=== PATIENT | male | born 1945 | race Caucasian/White ===

== ENCOUNTER 2016-06-23 08:20 | Outpatient (CLI) | payer MEDICARE, OTHER | END 2016-06-23 08:21 | disposition home or self-care (01) | DX: I48.91 Unspecified atrial fibrillation (principal) ==

== ENCOUNTER 2018-03-20 09:55 | Emergency (ER) | payer MEDICARE, OTHER ==
[2018-03-20] MEDS ORDERED: SODIUM CHLORIDE 0.9% 1,000 ML IV ONE (10:20)
--- NOTE | 2018-03-20 10:22 | ED Physician Documentation ---
PD HPI CHEST PAIN - Stated complaint Stated Complaint: IRREGULAR HEARTBEAT - Chief complaint Chief Complaint: Cardiac - History obtained from History obtained from: Patient - History of Present Illness Timing - onset: Last night (about 2 am (8) Timing - onset during: Sleep, Rest Timing - duration: Hours (about 9-10 hours now.) Timing - details: Gradual onset, Still present, Waxing and waning Quality: Pressure (mainly feeling heart going faster than usually. has had atrial fib in the past and it feels like that now.). No: Pain Location: Substernal. No: Left neck, Epigastric Radiation: No: Jaw, Neck, Abdominal Review of Systems Constitutional: denies: Fever, Chills, Myalgias Nose: denies: Rhinorrhea / runny nose, Congestion Throat: denies: Sore throat Respiratory: denies: Cough GI: denies: Abdominal Pain, Nausea, Vomiting, Diarrhea PD PAST MEDICAL HISTORY - Past Medical History Cardiovascular: Hypertension, High cholesterol Respiratory: None Endocrine/Autoimmune: None GI: GERD : None HEENT: None Psych: None Musculoskeletal: None Derm: None - Past Surgical History Past Surgical History: Yes Cardiovascular: Other - Present Medications Home Medications: Ambulatory Orders Medication Instructions Recorded Confirmed Losartan [Cozaar] 25 mg PO DAILY 01/20/14 08/04/15 Omeprazole 20 mg PO DAILY 01/20/14 08/04/15 Aspirin/Calcium Carbonate/Mag 1 mg PO DAILY 09/28/14 08/04/15 [Aspirin Buffered 325 mg Tab] Hydrochlorothiazide 12.5 mg PO DAILY 05/06/15 08/04/15 Warfarin [Coumadin] 5 mg PO DAILY 05/06/15 08/04/15 - Allergies Allergies/Adverse Reactions: Allergies Allergy/AdvReac Type Severity Reaction Status Date / Time Sulfa (Sulfonamide Allergy Unknown Verified 08/04/15 10:45 Antibiotics) - Social History Does the pt smoke?: No Smoking Status: Never smoker Does the pt drink ETOH?: No Does the pt have substance abuse?: No - Immunizations Immunizations are current?: Yes Immunizations: TDAP >10years/unknown, No immun - POLST Patient has POLST: No PD ED PE NORMAL - Vitals Vital signs reviewed: Yes - General General: Alert and oriented X 3, No acute distress, Well developed/nourished - HEENT HEENT: Moist mucous membranes, Pharynx benign - Neck Neck: No bony TTP - Cardiac Cardiac: RRR, No murmur - Respiratory Respiratory: Clear bilaterally - Abdomen Abdomen: Soft, Non tender - Male Male : Deferred, Pt declined - Rectal Rectal: Deferred - Back Back: No CVA TTP - Derm Derm: Normal color, Warm and dry, No rash - Extremities Extremities: No tenderness to palpate, Normal ROM s pain, No calf tenderness / cord - Neuro Neuro: Alert and oriented X 3 Eye Opening: Spontaneous Motor: Obeys Commands Verbal: Oriented GCS Score: 15 - Psych Psych: Normal mood Results - Vitals Vitals: Oxygen O2 Source Room air - Labs Labs: Laboratory Tests 03/20/18 03/20/18 03/20/18 10:25 10:25 10:25 WBC 5.2 RBC 5.22 Hgb 16.5 Hct 46.8 MCV 89.7 MCH 31.7 H MCHC 35.3 RDW 13.3 Plt Count 135 MPV 8.9 Neut # (Auto) 3.5 Lymph # (Auto) 0.9 L [place] # (Auto) 0.5 Eos # (Auto) 0.2 Baso # (Auto) 0.1 Absolute Nucleated RBC 0.01 Nucleated RBC % 0.2 PT INR Sodium 137 Potassium 4.1 Chloride 101 Carbon Dioxide 27 Anion Gap 9.0 BUN 12 Creatinine 0.7 Estimated GFR (MDRD) 111 Glucose 106 H Calcium 8.8 Magnesium 2.1 Total Bilirubin 1.3 H AST 32 ALT 30 Alkaline Phosphatase 109 B-Natriuretic Peptide 42 Total Protein 7.3 Albumin 4.4 Globulin 2.9 Albumin/Globulin Ratio 1.5 Lipase 24 03/20/18 10:25 WBC RBC Hgb Hct MCV MCH MCHC RDW Plt Count MPV Neut # (Auto) Lymph # (Auto) [place] # (Auto) Eos # (Auto) Baso # (Auto) Absolute Nucleated RBC Nucleated RBC % PT 12.7 H INR 1.1 Sodium Potassium Chloride Carbon Dioxide Anion Gap BUN Creatinine Estimated GFR (MDRD) Glucose Calcium Magnesium Total Bilirubin AST ALT Alkaline Phosphatase B-Natriuretic Peptide Total Protein Albumin Globulin Albumin/Globulin Ratio Lipase PD MEDICAL DECISION MAKING - ED course Complexity details: considered differential (his rhythm was atrial fib on arrival, and then converted without specific treatment. ), d/w patient Departure - Departure Disposition: 01 Home, Self Care Clinical Impression: Atrial fibrillation with rapid ventricular response Condition: Stable Record reviewed to determine appropriate education?: Yes Instructions: ED Afib Follow-Up: Derik Jay MD [Primary Care Provider] - Comments: Your electrolytes appear good. Maintain good hydration. Continue your current medications. Contact your cardiology office today and let them know you had an episode of the A. fib but it stopped on its own. See when they want to do a follow-up. Return if recurrent episodes of the fibrillation. Discharge Date/Time: 03/20/18 11:33
[2018-03-20 10:54] LABS: BASOPHILS # (AUTO) 0.1 10^3/uL (0.0-0.1); BASOPHILS % (AUTO) 2.4 %; EOSINOPHILS # (AUTO) 0.2 10^3/uL (0.0-0.7); EOSINOPHILS % (AUTO) 3.8 %; HGB - HEMOGLOBIN 16.5 g/dL (14.0-18.0); LYMPHOCYTES # (AUTO) 0.9 10^3/uL (1.5-3.5); LYMPHOCYTES % (AUTO) 17.1 %; MEAN CORPUSCULAR HEMOGLOBIN 31.7 pg (27.0-31.0); MEAN CORPUSCULAR HGB CONC 35.3 g/dL (32.0-36.0); MEAN CORPUSCULAR VOLUME 89.7 fL (80.0-94.0); MEAN PLATELET VOLUME 8.9 fL (7.4-11.4); MONOCYTES # (AUTO) 0.5 10^3/uL (0.0-1.0); MONOCYTES % (AUTO) 10.3 %; NEUTROPHILS # (AUTO) 3.5 10^3/uL (1.5-6.6); NEUTROPHILS % (AUTO) 66.4 %; PLT - PLATELET COUNT 135 10^3/uL (130-450); RED BLOOD COUNT 5.22 10^6/uL (4.70-6.10); RED CELL DISTRIBUTION WIDTH 13.3 % (12.0-15.0); WHITE BLOOD COUNT 5.2 x10^3/uL (4.8-10.8)
[2018-03-20 11:03] LABS: ALBUMIN 4.4 g/dL (3.2-5.5); ALBUMIN/GLOBULIN RATIO 1.5 (1.0-2.2); BILIRUBIN,TOTAL 1.3 mg/dL (0.2-1.0); CALCIUM 8.8 mg/dL (8.5-10.3); CREATININE 0.7 mg/dL (0.6-1.2); MAGNESIUM 2.1 mg/dL (1.7-2.8); TOTAL PROTEIN 7.3 g/dL (6.7-8.2)
[2018-03-20 11:07] LABS: INR 1.1 (0.8-1.2); PT - PROTHROMBIN TIME 12.7 secs (9.9-12.6)
[2018-03-20 11:33] VITALS: BP 112/70
== END 2018-03-20 11:33 | disposition home or self-care (01) ==
LOC: ED 09:55
DX: I48.91 Unspecified atrial fibrillation (principal); I10 Essential (primary) hypertension; E78.00 Pure hypercholesterolemia, unspecified; Z79.82 Long term (current) use of aspirin; Z79.01 Long term (current) use of anticoagulants
CPT/HCPCS: 36415; 80053; 83690; 83735; 83880; 85025; 85610; 93005; 96360; 99283

== ENCOUNTER 2018-04-05 01:18 | Emergency (ER) | payer MEDICARE, OTHER ==
--- NOTE | 2018-04-05 01:40 | ED Physician Documentation ---
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" since 10 PM he had an epsiode of afib Mar 20, spont converted, dc home, fup cardio and cardio did a stress which was abn then cath which got pt a stent he is now on plavix he only spent one night in the hospital and has been up and about and had no leg swelling Review of Systems Constitutional: denies: Fever, Chills Cardiac: reports: Chest pain / pressure (indigestion), Palpitations Respiratory: denies: Dyspnea GI: denies: Abdominal Pain, Nausea, Vomiting Musculoskeletal: denies: Extremity pain, Extremity swelling Endocrine: reports: Easy bruising / bleeding (plavix) Immunocompromised: denies: Immunocompromised PD PAST MEDICAL HISTORY - Past Medical History Past Medical History: Yes Cardiovascular: Hypertension, High cholesterol, Atrial fibrillation Respiratory: None Endocrine/Autoimmune: None GI: GERD : None HEENT: None Psych: None Musculoskeletal: None Derm: None - Past Surgical History Past Surgical History: Yes Cardiovascular: Other - Present Medications Home Medications: Ambulatory Orders Medication Instructions Recorded Confirmed Losartan [Cozaar] 25 mg PO DAILY 01/20/14 08/04/15 Omeprazole 20 mg PO DAILY 01/20/14 08/04/15 Aspirin/Calcium Carbonate/Mag 1 mg PO DAILY 09/28/14 08/04/15 [Aspirin Buffered 325 mg Tab] Hydrochlorothiazide 12.5 mg PO DAILY 05/06/15 08/04/15 Warfarin [Coumadin] 5 mg PO DAILY 05/06/15 08/04/15 - Allergies Allergies/Adverse Reactions: Allergies Allergy/AdvReac Type Severity Reaction Status Date / Time Sulfa (Sulfonamide Allergy Unknown Verified 04/05/18 01:28 Antibiotics) - Social History Does the pt smoke?: No Smoking Status: Never smoker Does the pt drink ETOH?: No Does the pt have substance abuse?: No - Immunizations Immunizations are current?: Yes Immunizations: TDAP >10years/unknown, No immun - POLST Patient has POLST: No PD ED PE NORMAL - Vitals Vital signs reviewed: Yes - General General: Alert and oriented X 3 - Neck Neck: Supple, no meningeal sign - Cardiac Cardiac: RRR - Respiratory Respiratory: No respiratory distress, Clear bilaterally - Abdomen Abdomen: Soft, Non tender - Derm Derm: Normal color - Extremities Extremities: No deformity, Normal ROM s pain, No edema, No calf tenderness / cord - Neuro Neuro: Alert and oriented X 3 Results - Vitals Vitals: Vital Signs - 24 hr 04/05/18 04/05/18 04/05/18 01:23 01:53 01:59 Temperature 35.6 C L Heart Rate 124 H 120 H 90 Respiratory 17 16 15 Rate Blood Pressure 175/95 H 159/108 H 128/74 O2 Saturation 94 96 96 04/05/18 04/05/18 04/05/18 02:05 02:10 02:27 Temperature Heart Rate 81 88 90 Respiratory 16 17 17 Rate Blood Pressure 134/85 H 142/85 H 132/81 H O2 Saturation 97 98 96 04/05/18 04/05/18 04/05/18 02:35 02:59 03:13 Temperature Heart Rate 76 91 85 Respiratory 16 17 16 Rate Blood Pressure 141/81 H 146/85 H 130/87 H O2 Saturation 97 97 97 04/05/18 04/05/18 04/05/18 03:24 03:36 03:50 Temperature Heart Rate 99 96 98 Respiratory 15 19 15 Rate Blood Pressure 130/88 H 132/97 H 116/79 O2 Saturation 99 96 96 04/05/18 04/05/18 04/05/18 04:04 04:27 04:33 Temperature Heart Rate 105 H 127 H 55 L Respiratory 17 17 16 Rate Blood Pressure 121/90 H 116/104 H 92/56 L O2 Saturation 97 99 97 04/05/18 04/05/18 04:37 04:58 Temperature Heart Rate 50 L 46 L Respiratory 15 17 Rate Blood Pressure 115/67 108/62 O2 Saturation 99 98 Oxygen O2 Source Room air - EKG (time done) 107 Rate: Rate (enter#) (124) Rhythm: Atrial fibrillation Ischemia: Non specific changes (flat ts inferior) 0437 Rate: Rate (enter#) (50) Rhythm: Sinus bradycardia Intervals: Normal [place] QRS: Normal Ischemia: T wave inversion (III only) Compare to prior EKG: Unchanged from prior EKG (lead III is similar to last NSR EKG dates 2014) 0455 Rate: Rate (enter#) (49) Rhythm: Sinus bradycardia [place]: Normal Intervals: Normal [place]. No: Prolonged QT Ischemia: T wave inversion (III only not new) Compare to prior EKG: Unchanged from prior EKG - Labs Labs: Laboratory Tests 04/05/18 04/05/18 04/05/18 01:35 01:35 01:35 WBC 6.2 RBC 4.75 Hgb 15.1 Hct 43.5 MCV 91.6 MCH 31.8 H MCHC 34.7 RDW 13.3 Plt Count 133 MPV 9.2 Neut # (Auto) 4.5 Lymph # (Auto) 1.1 L [place] # (Auto) 0.3 Eos # (Auto) 0.3 Baso # (Auto) 0.1 Absolute Nucleated RBC 0.00 Nucleated RBC % 0.0 Sodium 136 Potassium 3.2 L Chloride 99 L Carbon Dioxide 27 Anion Gap 10.0 BUN 22 H Creatinine 0.7 Estimated GFR (MDRD) 111 Glucose 133 H Calcium 8.8 Troponin I < 0.04 04/05/18 03:45 WBC RBC Hgb Hct MCV MCH MCHC RDW Plt Count MPV Neut # (Auto) Lymph # (Auto) [place] # (Auto) Eos # (Auto) Baso # (Auto) Absolute Nucleated RBC Nucleated RBC % Sodium Potassium Chloride Carbon Dioxide Anion Gap BUN Creatinine Estimated GFR (MDRD) Glucose Calcium Troponin I < 0.04 Procedures - Procedural sedation Sedation prep: Informed consent, Time out completed, Last meal (gatoriad 4 hr prior), PE performed, AHA 2 - mild disease, IV O2 monitor, ET CO2 monitor, RT present Sedation medications: morphine, propofol Patient status during sedation: Responds to verbal, Vitals remained stable, Maintained airway, Recovered uneventfully. No: Respiratory depression, Hypoxia, Needed resp assistance, Complications Sedation recovery: Recovered uneventfully, Back to baseline - Cardioversion 0430 Time of attempt: 04:30 Indication: Chest pain Risks, benefits, alternatives explained to: Pt Prep: IV, O2, amortization schedule clerk, Pulse ox, Airway equip Meds: Morphine, Propofol CS via: Pads Sync: Biphasic, 100j Post cardioversion rhythm: NSR Complications: No: Contact burn, Apnea, Hypotension Performed by: ED MD PD MEDICAL DECISION MAKING - ED course ED course: dilt 10 mg slowed rate but pt did not concernt procainamide 1 gram at 25mg/min also did not concert pt (he was not a candidate for flecainide given recent ACS) he was continuing to have "indigestion" pressure to epigastric region so did not feel safe too dc to fup cardio for discussion and cadriovert within 48 hr so after discussing risks and benefits proceeded with cardiovert under propofol sedation with conversion to NSR with one shock at 100 J Departure - Departure Disposition: Home, Self Care Clinical Impression: Atrial fibrillation Qualifiers: Atrial fibrillation type: paroxysmal Qualified Code(s): I48.0 - Paroxysmal atrial fibrillation Condition: Good Instructions: ED Afib, ED Cardioversion Comments: 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 Today you arrived in atrial fibrillation with a slighty fast heart rate We were not able to concert you back to a regular rhythm with medications so had to use elctricity. Because your wharf laborer found that you needed a stent after your last bout of atrial fibrillation, we checked two rounds of cardiac enzymes in the ER and they were fine You should not drive for the next 24 hr after your sedation.
[2018-04-05 01:49] LABS: BASOPHILS # (AUTO) 0.1 10^3/uL (0.0-0.1); BASOPHILS % (AUTO) 1.1 %; CALCIUM 8.8 mg/dL (8.5-10.3); CREATININE 0.7 mg/dL (0.6-1.2); EOSINOPHILS # (AUTO) 0.3 10^3/uL (0.0-0.7); EOSINOPHILS % (AUTO) 4.3 %; HGB - HEMOGLOBIN 15.1 g/dL (14.0-18.0); LYMPHOCYTES # (AUTO) 1.1 10^3/uL (1.5-3.5); LYMPHOCYTES % (AUTO) 17.5 %; MEAN CORPUSCULAR HEMOGLOBIN 31.8 pg (27.0-31.0); MEAN CORPUSCULAR HGB CONC 34.7 g/dL (32.0-36.0); MEAN CORPUSCULAR VOLUME 91.6 fL (80.0-94.0); MEAN PLATELET VOLUME 9.2 fL (7.4-11.4); MONOCYTES # (AUTO) 0.3 10^3/uL (0.0-1.0); MONOCYTES % (AUTO) 5.1 %; NEUTROPHILS # (AUTO) 4.5 10^3/uL (1.5-6.6); PLT - PLATELET COUNT 133 10^3/uL (130-450); RED BLOOD COUNT 4.75 10^6/uL (4.70-6.10); RED CELL DISTRIBUTION WIDTH 13.3 % (12.0-15.0); WHITE BLOOD COUNT 6.2 x10^3/uL (4.8-10.8)
[2018-04-05] MEDS: SODIUM CHLORIDE 0.9% 1,000 ML IV ONE (01:55)
[2018-04-05] MEDS: diltiaZEM INJ 5 MG/ML VIAL IVP STA (01:55)
[2018-04-05] MEDS: PROCAINAMIDE 1,000 MG in SODIUM CHLORIDE 0.9% 240 ML IV STA (03:17)
[2018-04-05] MEDS: PROMETHAZINE INJ 25 MG in SODIUM CHLORIDE 0.9% 50 ML IV STA (04:24)
[2018-04-05] MEDS: MORPHINE 2 MG/ML CARPUJECT IVP STA (04:24)
[2018-04-05] MEDS: ONDANSETRON 4 MG/2 ML VIAL IVP STA (04:34)
[2018-04-05] MEDS: PROPOFOL 200 MG/20 ML VIAL IVP STA (04:34)
[2018-04-05] MEDS: POTASSIUM CHLORIDE 20 MEQ TABLET PO STA (05:19)
[2018-04-05 05:22] VITALS: BP 122/81
== END 2018-04-05 05:42 | disposition home or self-care (01) ==
LOC: ED 01:18
DX: I48.0 Paroxysmal atrial fibrillation (principal); R00.1 Bradycardia, unspecified; I10 Essential (primary) hypertension; E78.00 Pure hypercholesterolemia, unspecified; Z79.01 Long term (current) use of anticoagulants; Z95.5 Presence of coronary angioplasty implant and graft
CPT/HCPCS: 36415; 80048; 84484; 85025; 92960; 93005; 96365; 96375; 99284; 99285

== ENCOUNTER 2018-04-17 08:22 | Outpatient (CLI) | payer MEDICARE, OTHER | END 2018-04-17 08:23 | disposition home or self-care (01) | LOC: LAB.F 08:22 | PROVIDERS: ATTEND Family Medicine | DX: Z79.01 Long term (current) use of anticoagulants (principal); I48.91 Unspecified atrial fibrillation | CPT/HCPCS: 85610 ==

== ENCOUNTER 2018-04-24 07:22 | Outpatient (CLI) | payer MEDICARE, OTHER | END 2018-04-24 07:23 | disposition home or self-care (01) | LOC: LAB.F 07:22 | PROVIDERS: ATTEND Family Medicine | DX: Z79.01 Long term (current) use of anticoagulants (principal); I48.91 Unspecified atrial fibrillation | CPT/HCPCS: 85610 ==

== ENCOUNTER 2018-05-03 07:32 | Outpatient (CLI) | payer MEDICARE, OTHER | END 2018-05-03 07:33 | disposition home or self-care (01) | LOC: LAB.F 07:32 | PROVIDERS: ATTEND Family Medicine | DX: Z79.01 Long term (current) use of anticoagulants (principal); I48.91 Unspecified atrial fibrillation | CPT/HCPCS: 85610 ==

== ENCOUNTER 2018-05-16 14:22 | Outpatient (CLI) | payer MEDICARE, OTHER | END 2018-05-16 14:23 | disposition home or self-care (01) | LOC: LAB.F 14:22 | PROVIDERS: ATTEND Family Medicine | DX: Z79.01 Long term (current) use of anticoagulants (principal); I48.91 Unspecified atrial fibrillation | CPT/HCPCS: 85610 ==

== ENCOUNTER 2018-07-01 03:07 | Outpatient (CLI) | payer MEDICARE, OTHER | END 2018-07-01 03:08 | disposition critical access hospital (66) | LOC: EMS 03:07 | PROVIDERS: ATTEND Surgery | DX: R00.0 Tachycardia, unspecified (principal) | CPT/HCPCS: A0425; A0427 ==

== ENCOUNTER 2018-07-01 03:39 | Emergency (ER) | payer MEDICARE, OTHER ==
[2018-07-01] MEDS ORDERED: SODIUM CHLORIDE 0.9% 1,000 ML IV ONE (04:00)
[2018-07-01] MEDS ORDERED: diltiaZEM INJ 5 MG/ML VIAL IVP STA (04:00)
--- NOTE | 2018-07-01 04:03 | ED Physician Documentation ---
History of Present Illness - Stated complaint Stated Complaint: RACING HEART, A-FIB - Chief complaint Chief Complaint: Cardiac - History obtained from History obtained from: Patient, EMS - History of Present Illness Timing: Today - Additonal information Additional information: 73 y/o male with a history of afib S/P ablation has developed rapid heart rate this morning after getting up to go to the bathroom. Review of Systems Constitutional: denies: Fever, Chills, Myalgias, Fatigue, Sweats Eyes: reports: Other (developed a "spot" in the vision 10 days ago evaluated by opthamology) Ears: denies: Ear pain Nose: denies: Rhinorrhea / runny nose, Congestion Throat: denies: Sore throat Cardiac: reports: Chest pain / pressure (had evaluation done at [place]) Respiratory: denies: Dyspnea, Cough GI: denies: Abdominal Pain, Nausea, Vomiting, Constipation, Diarrhea : denies: Dysuria, Frequency Skin: denies: Rash Musculoskeletal: denies: Neck pain, Back pain, Extremity pain Neurologic: denies: Generalized weakness, Focal weakness, Numbness PD PAST MEDICAL HISTORY - Past Medical History Past Medical History: Yes Cardiovascular: Hypertension, High cholesterol, Atrial fibrillation Respiratory: None Endocrine/Autoimmune: None GI: GERD : None HEENT: None Psych: None Musculoskeletal: None Derm: None - Past Surgical History Past Surgical History: Yes Cardiovascular: Other - Present Medications Home Medications: Ambulatory Orders Medication Instructions Recorded Confirmed Losartan [Cozaar] 50 mg PO DAILY 01/20/14 07/01/18 Omeprazole 20 mg PO DAILY 01/20/14 07/01/18 Hydrochlorothiazide 12.5 mg PO DAILY 05/06/15 07/01/18 Warfarin [Coumadin] 5 mg PO DAILY 05/06/15 07/01/18 Aspirin 1 tab PO DAILY 07/01/18 07/01/18 Atorvastatin Calcium 1 tab PO DAILY 07/01/18 07/01/18 Clopidogrel [Plavix] 1 tab PO DAILY 07/01/18 07/01/18 Diltiazem HCl [Diltiazem ER] 120 mg PO DAILY 07/01/18 07/01/18 Warfarin Sodium 1 tab PO DAILY 07/01/18 07/01/18 raNITIdine [Zantac] 1 tab PO BID 07/01/18 07/01/18 - Allergies Allergies/Adverse Reactions: Allergies Allergy/AdvReac Type Severity Reaction Status Date / Time Sulfa (Sulfonamide Allergy Unknown Verified 07/01/18 03:55 Antibiotics) - Social History Does the pt smoke?: No Smoking Status: Never smoker Does the pt drink ETOH?: No Does the pt have substance abuse?: No - Immunizations Immunizations are current?: Yes Immunizations: TDAP >10years/unknown, No immun - POLST Patient has POLST: No PD ED PE NORMAL - Vitals Vital signs reviewed: Yes (hypertensive and tachycardic ) - General General: Alert and oriented X 3, No acute distress, Well developed/nourished - HEENT HEENT: Atraumatic, PERRL, EOMI - Neck Neck: Supple, no meningeal sign, No bony TTP - Cardiac Cardiac: No murmur, Other (irregularly irregular rate and rhythm) - Respiratory Respiratory: No respiratory distress, Clear bilaterally - Abdomen Abdomen: Soft, Non tender - Back Back: No CVA TTP, No spinal TTP - Derm Derm: Normal color, Warm and dry, No rash - Extremities Extremities: No deformity, No edema - Neuro Neuro: Alert and oriented X 3, interface engineer 2-12 intact, No motor deficit, No sensory deficit, Normal speech Eye Opening: Spontaneous Motor: Obeys Commands Verbal: Oriented GCS Score: 15 - Psych Psych: Normal mood, Normal affect Results - Vitals Vitals: Vital Signs - 24 hr 07/01/18 07/01/18 07/01/18 03:40 03:42 03:54 Temperature 36.6 C Heart Rate 107 H 101 H Respiratory 18 22 Rate Blood Pressure 161/100 H 135/86 H Blood Pressure 135/86 H [Left] Blood Pressure 161/100 H [Right] O2 Saturation 97 96 07/01/18 07/01/18 04:10 04:29 Temperature Heart Rate 62 54 L Respiratory 16 20 Rate Blood Pressure 151/78 H 151/78 H Blood Pressure [Left] Blood Pressure [Right] O2 Saturation 95 96 Oxygen O2 Source Room air - EKG (time done) 0349 Rate: Rate (enter#) (107) Rhythm: Atrial fibrillation Ischemia: Non specific changes Compare to prior EKG: Unchanged from prior EKG (SPT 05-18-18 no significant changes) Computer interpretation: Agree with computer 0417 Rate: Rate (enter#) (57) Rhythm: NSR Compare to prior EKG: Changed from prior EKG (SPT earlier today the rythm has changed to sinus and rate has slowed. ) Computer interpretation: Agree with computer - Labs Labs: Laboratory Tests 07/01/18 07/01/18 07/01/18 04:05 04:05 04:05 WBC 7.6 RBC 4.97 Hgb 16.0 Hct 45.3 MCV 91.2 MCH 32.2 H MCHC 35.3 RDW 13.7 Plt Count 125 L MPV 8.4 Neut # (Auto) 5.7 Lymph # (Auto) 1.0 L [place] # (Auto) 0.5 Eos # (Auto) 0.2 Baso # (Auto) 0.1 Absolute Nucleated RBC 0.00 Nucleated RBC % 0.0 PT INR Sodium 136 Potassium 3.2 L Chloride 99 L Carbon Dioxide 25 Anion Gap 12.0 BUN 18 Creatinine 0.6 Estimated GFR (MDRD) 132 Glucose 107 H Calcium 8.9 Total Bilirubin 1.2 H AST 26 ALT 27 Alkaline Phosphatase 101 Troponin I < 0.04 Total Protein 7.2 Albumin 4.3 Globulin 2.9 Albumin/Globulin Ratio 1.5 Lipase 35 Urine Color Urine Clarity Urine pH Ur Specific [place] Urine Protein Urine Glucose (UA) Urine Ketones Urine Occult Blood Urine Nitrite Urine Bilirubin Urine Urobilinogen Ur Leukocyte Esterase Ur Microscopic Review Urine Culture Comments 07/01/18 07/01/18 04:05 04:14 WBC RBC Hgb Hct MCV MCH MCHC RDW Plt Count MPV Neut # (Auto) Lymph # (Auto) [place] # (Auto) Eos # (Auto) Baso # (Auto) Absolute Nucleated RBC Nucleated RBC % PT 27.3 H INR 2.5 H Sodium Potassium Chloride Carbon Dioxide Anion Gap BUN Creatinine Estimated GFR (MDRD) Glucose Calcium Total Bilirubin AST ALT Alkaline Phosphatase Troponin I Total Protein Albumin Globulin Albumin/Globulin Ratio Lipase Urine Color STRAW Urine Clarity CLEAR Urine pH 7.0 Ur Specific [place] <=1.005 Urine Protein NEGATIVE Urine Glucose (UA) NEGATIVE Urine Ketones NEGATIVE Urine Occult Blood NEGATIVE Urine Nitrite NEGATIVE Urine Bilirubin NEGATIVE Urine Urobilinogen 0.2 (NORMAL) Ur Leukocyte Esterase NEGATIVE Ur Microscopic Review NOT INDICATED Urine Culture Comments NOT INDICATED Procedures - IVC sono (time) 0355 Bedside IVC sono: IVC measures (cm) (1.13), Dehydration (est 1 liter deficit) PD MEDICAL DECISION MAKING - ED course Complexity details: reviewed old records, reviewed results, re-evaluated patient, considered differential, d/w patient ED course: 73-year-old male with a history of intermittent atrial fibrillation got up to go to the bathroom this morning and noted a rapid irregular heart rate. He is come to the emergency department for evaluation. He states that he is not having any shortness of breath nausea vomiting or chest pain associated with this. Here in the emergency department is inferior vena cava is interrogated he is found to be mildly dehydrated and IV saline is begun. 20 mg of diltiazem was ordered and was not given as the patient converted before the medication could be given. Departure - Departure Disposition: 01 Home, Self Care Clinical Impression: Atrial fibrillation Qualifiers: Atrial fibrillation type: paroxysmal Qualified Code(s): I48.0 - Paroxysmal atrial fibrillation Condition: Stable Instructions: ED Afib Follow-Up: Derik Jay MD [Primary Care Provider] -
[2018-07-01 04:10] LABS: BASOPHILS # (AUTO) 0.1 10^3/uL (0.0-0.1); BASOPHILS % (AUTO) 0.9 %; EOSINOPHILS # (AUTO) 0.2 10^3/uL (0.0-0.7); EOSINOPHILS % (AUTO) 2.7 %; LYMPHOCYTES % (AUTO) 13.9 %; MEAN CORPUSCULAR HEMOGLOBIN 32.2 pg (27.0-31.0); MEAN CORPUSCULAR HGB CONC 35.3 g/dL (32.0-36.0); MEAN CORPUSCULAR VOLUME 91.2 fL (80.0-94.0); MEAN PLATELET VOLUME 8.4 fL (7.4-11.4); MONOCYTES # (AUTO) 0.5 10^3/uL (0.0-1.0); MONOCYTES % (AUTO) 6.9 %; NEUTROPHILS # (AUTO) 5.7 10^3/uL (1.5-6.6); NEUTROPHILS % (AUTO) 75.6 %; PLT - PLATELET COUNT 125 10^3/uL (130-450); RED BLOOD COUNT 4.97 10^6/uL (4.70-6.10); RED CELL DISTRIBUTION WIDTH 13.7 % (12.0-15.0); WHITE BLOOD COUNT 7.6 x10^3/uL (4.8-10.8)
[2018-07-01 04:17] LABS: INR 2.5 (0.8-1.2); PT - PROTHROMBIN TIME 27.3 secs (9.9-12.6)
[2018-07-01 04:23] LABS: ALBUMIN 4.3 g/dL (3.2-5.5); ALBUMIN/GLOBULIN RATIO 1.5 (1.0-2.2); BILIRUBIN,TOTAL 1.2 mg/dL (0.2-1.0); CALCIUM 8.9 mg/dL (8.5-10.3); CREATININE 0.6 mg/dL (0.6-1.2); TOTAL PROTEIN 7.2 g/dL (6.7-8.2)
[2018-07-01 04:37] LABS: BILIRUBIN,URINE NEGATIVE (NEGATIVE); GLUCOSE, URINE (UA) NEGATIVE (NEGATIVE); KETONES,URINE (UA) NEGATIVE (NEGATIVE); LEUKOCYTE ESTERASE, URINE NEGATIVE (NEGATIVE); NITRITE,URINE NEGATIVE (NEGATIVE); OCCULT BLOOD,URINE NEGATIVE (NEGATIVE); PROTEIN,URINE NEGATIVE (NEGATIVE); UROBILINOGEN,URINE 0.2 (NORMAL) E.U./dL (NORMAL)
[2018-07-01 04:41] LABS: CLARITY,URINE CLEAR (CLEAR)
[2018-07-01] MEDS ORDERED: POTASSIUM BICARB 25 MEQ TABLET PO STA (04:41)
[2018-07-01 05:25] VITALS: BP 136/80
== END 2018-07-01 05:25 | disposition home or self-care (01) ==
LOC: EDUNIT# → ED 03:39
DX: I48.0 Paroxysmal atrial fibrillation (principal); E86.0 Dehydration; E78.00 Pure hypercholesterolemia, unspecified; I10 Essential (primary) hypertension; Z79.01 Long term (current) use of anticoagulants; Z79.82 Long term (current) use of aspirin
CPT/HCPCS: 36415; 80053; 81003; 83690; 84484; 85025; 85610; 93005; 96360; 99284; A9270; 81001; 87086

== ENCOUNTER 2018-07-11 10:21 | Emergency (ER) | payer MEDICARE, OTHER ==
[2018-07-11] MEDS ORDERED: OXYMETAZOLINE NASAL SPRAY NAS STA (11:12)
[2018-07-11] MEDS ORDERED: TRANEXAMIC ACID 1,000 MG/10 ML VIAL NAS STA (11:12)
--- NOTE | 2018-07-11 11:51 | ED Physician Documentation ---
PD HPI HEENT - Stated complaint Stated Complaint: NOSE BLEED - Chief complaint Chief Complaint: Heent - History obtained from History obtained from: Patient - History of Present Illness Timing - onset: How many hours ago (4) Timing - duration: Hours (4) Timing - details: Abrupt onset Pain level max: 0 Pain level now: 0 Location: Nose (L nare) Improves: Nothing Worsens: Other (nothing) Associated symptoms: No: Fever, Congestion, Rhinorrhea, Unable to swallow, Swollen nodes - Additional information Additional information: Nosebleed this morning. Takes warfarin for A. fib. Is also on Plavix. Review of Systems Constitutional: denies: Fever, Chills Throat: denies: Sore throat Cardiac: denies: Chest pain / pressure Respiratory: denies: Cough GI: denies: Nausea, Vomiting, Diarrhea Skin: denies: Rash Musculoskeletal: denies: Neck pain, Back pain Neurologic: denies: Headache PD PAST MEDICAL HISTORY - Past Medical History Cardiovascular: Hypertension, High cholesterol, Atrial fibrillation Respiratory: None Endocrine/Autoimmune: None GI: GERD : None HEENT: None Psych: None Musculoskeletal: None Derm: None - Past Surgical History Past Surgical History: Yes Cardiovascular: Other - Present Medications Home Medications: Ambulatory Orders Medication Instructions Recorded Confirmed Losartan [Cozaar] 50 mg PO DAILY 01/20/14 07/01/18 Omeprazole 20 mg PO DAILY 01/20/14 07/01/18 Hydrochlorothiazide 12.5 mg PO DAILY 05/06/15 07/01/18 Warfarin [Coumadin] 5 mg PO DAILY 05/06/15 07/01/18 Aspirin 1 tab PO DAILY 07/01/18 07/01/18 Atorvastatin Calcium 1 tab PO DAILY 07/01/18 07/01/18 Clopidogrel [Plavix] 1 tab PO DAILY 07/01/18 07/01/18 Diltiazem HCl [Diltiazem ER] 120 mg PO DAILY 07/01/18 07/01/18 Warfarin Sodium 1 tab PO DAILY 07/01/18 07/01/18 raNITIdine [Zantac] 1 tab PO BID 07/01/18 07/01/18 Cephalexin [Keflex] 500 mg PO Q6H #12 capsule 07/11/18 - Allergies Allergies/Adverse Reactions: Allergies Allergy/AdvReac Type Severity Reaction Status Date / Time Sulfa (Sulfonamide Allergy Unknown Verified 07/11/18 18:00 Antibiotics) - Social History Does the pt smoke?: No Smoking Status: Never smoker Does the pt drink ETOH?: No Does the pt have substance abuse?: No - Immunizations Immunizations are current?: Yes Immunizations: TDAP >10years/unknown, No immun - POLST Patient has POLST: No PD ED PE NORMAL - Vitals Vital signs reviewed: Yes - General General: Alert and oriented X 3, No acute distress - HEENT HEENT: Ears normal, Moist mucous membranes, Other (L nare epistaxis. unable to visualize bleeding source) - Neck Neck: Supple, no meningeal sign - Respiratory Respiratory: No respiratory distress, Clear bilaterally - Derm Derm: Warm and dry - Neuro Neuro: Alert and oriented X 3 Results - Vitals Vitals: Vital Signs - 24 hr 07/11/18 07/11/18 07/11/18 10:25 12:32 13:34 Temperature 36.5 C 36.5 C Heart Rate 59 L 58 L 60 Respiratory 18 18 20 Rate Blood Pressure 152/72 H 137/75 H 142/91 H O2 Saturation 96 97 98 Oxygen O2 Source Room air - Labs Labs: Laboratory Tests 07/11/18 10:40 Whole Blood INR 3.5 H Procedures - Epistaxis Site: Left, Cannot determine Preparation: Clots removed, Afrin, Clamp / pressure applied, Other (TXA) Treatment: Anterior rhinorocket Other: Observed - no bleeding, Pt tolerated well, O2 sat WNL, Antibiotics prescribed, Referred to ENT PD MEDICAL DECISION MAKING - ED course Complexity details: reviewed results, re-evaluated patient, considered differential, d/w patient ED course: 73-year-old male presents to the emergency department with a left nare epistaxis. Packing inserted. Patient tolerated well. Did not resolved with Afrin and TXA. Will prescribe antibiotics and follow-up with ENT. Patient counseled regarding signs and symptoms for which I believe and urgent re- evaluation would be necessary. Patient with good understanding of and agreement to plan and is comfortable going home at this time This document was made in part using voice recognition software. While efforts are made to proofread this document, sound alike and grammatical errors may occur. Departure - Departure Disposition: 01 Home, Self Care Clinical Impression: Anticoagulant long-term use, Epistaxis Condition: Good Instructions: ED Nosebleed, ED Nasal Packing Anterior Removable Follow-Up: [facility] [Provider Group] - Within 3 Days Derik Jay MD [Primary Care Provider] - Within 3 Days Prescriptions: Cephalexin [Keflex] 500 mg PO Q6H #12 capsule Comments: You should follow-up with ENT in 2 days for packing removal. If they are unable to see you, return here for removal. Return sooner if you worsen. Discharge Date/Time: 07/11/18 13:36
[2018-07-11 13:34] VITALS: BP 142/91
== END 2018-07-11 13:36 | disposition home or self-care (01) ==
LOC: ED 10:21
DX: R04.0 Epistaxis (principal); I48.91 Unspecified atrial fibrillation; Z79.01 Long term (current) use of anticoagulants; I10 Essential (primary) hypertension; E78.00 Pure hypercholesterolemia, unspecified
CPT/HCPCS: 85610; 99283

== ENCOUNTER 2018-07-11 17:50 | Emergency (ER) | payer MEDICARE, OTHER ==
[2018-07-11 18:00] VITALS: BP 175/74
--- NOTE | 2018-07-11 18:50 | ED Physician Documentation ---
PD HPI HEENT FB - Chief complaint Chief Complaint: Heent - History obtained from History obtained from: Patient - History of Present Illness Timing - onset: Today (He was seen earlier in the day with left-sided epistaxis and a Rhino Rocket was placed. He cannot tolerate the pain of the Rhino Rocket.) Review of Systems Constitutional: reports: Reviewed and negative Throat: reports: Reviewed and negative Cardiac: reports: Reviewed and negative PD PAST MEDICAL HISTORY - Past Medical History Cardiovascular: Hypertension, High cholesterol, Atrial fibrillation Respiratory: None Endocrine/Autoimmune: None GI: GERD : None HEENT: None Psych: None Musculoskeletal: None Derm: None - Past Surgical History Past Surgical History: Yes Cardiovascular: Other - Present Medications Home Medications: Ambulatory Orders Medication Instructions Recorded Confirmed RX: Losartan [Cozaar] 50 mg PO DAILY 01/20/14 07/01/18 RX: Omeprazole 20 mg PO DAILY 01/20/14 07/01/18 RX: Hydrochlorothiazide 12.5 mg PO DAILY 05/06/15 07/01/18 Warfarin [Coumadin] 5 mg PO DAILY 05/06/15 07/01/18 Clopidogrel [Plavix] 1 tab PO DAILY 07/01/18 07/01/18 Diltiazem HCl [Diltiazem ER] 120 mg PO DAILY 07/01/18 07/01/18 RX: Aspirin 1 tab PO DAILY 07/01/18 07/01/18 RX: Atorvastatin Calcium 1 tab PO DAILY 07/01/18 07/01/18 RX: Warfarin Sodium 1 tab PO DAILY 07/01/18 07/01/18 raNITIdine [Zantac] 1 tab PO BID 07/01/18 07/01/18 Cephalexin [Keflex] 500 mg PO Q6H #12 capsule 07/11/18 - Allergies Allergies/Adverse Reactions: Allergies Allergy/AdvReac Type Severity Reaction Status Date / Time Sulfa (Sulfonamide Allergy Unknown Verified 07/11/18 18:00 Antibiotics) - Social History Does the pt smoke?: No Smoking Status: Never smoker Does the pt drink ETOH?: No Does the pt have substance abuse?: No - Immunizations Immunizations are current?: Yes Immunizations: TDAP >10years/unknown, No immun - POLST Patient has POLST: No PD ED PE NORMAL - Vitals Vital signs reviewed: Yes - General General: Alert and oriented X 3, No acute distress - HEENT HEENT: Other (There is a Rhino Rocket in place on the left side without evidence of recent active bleeding) - Neuro Neuro: Alert and oriented X 3, Normal speech Results - Vitals Vitals: Vital Signs - 24 hr 07/11/18 17:58 Temperature 35.7 C L Heart Rate 61 Respiratory 16 Rate Blood Pressure 175/74 H O2 Saturation 96 Oxygen O2 Source Room air PD MEDICAL DECISION MAKING - ED course ED course: Slowly I took air out of the Rhino Rocket and even with it completely deflated he could not really tolerate it. The Rhino Rocket removed is removed and he will be monitored for about half an hour for recurrent bleeding. Departure - Departure Disposition: 01 Home, Self Care Clinical Impression: Epistaxis Condition: Good Record reviewed to determine appropriate education?: Yes Instructions: Nosebleed Discharge Date/Time: 07/11/18 19:18
== END 2018-07-11 19:18 | disposition home or self-care (01) ==
LOC: ED 17:50
DX: R04.0 Epistaxis (principal); I48.91 Unspecified atrial fibrillation; I10 Essential (primary) hypertension; E78.00 Pure hypercholesterolemia, unspecified; Z79.01 Long term (current) use of anticoagulants
CPT/HCPCS: 30901; 85610; 99282; 99283

== ENCOUNTER 2018-07-19 08:00 | Outpatient (CLI) | payer MEDICARE, OTHER | END 2018-07-19 08:01 | disposition home or self-care (01) | LOC: LAB.F 08:00 | PROVIDERS: ATTEND Family Medicine | DX: I48.91 Unspecified atrial fibrillation (principal); Z79.01 Long term (current) use of anticoagulants | CPT/HCPCS: 85610 ==

== ENCOUNTER 2018-07-26 07:30 | Outpatient (CLI) | payer MEDICARE, OTHER | END 2018-07-26 07:31 | disposition home or self-care (01) | LOC: LAB.F 07:30 | PROVIDERS: ATTEND Family Medicine | DX: I48.91 Unspecified atrial fibrillation (principal); Z79.01 Long term (current) use of anticoagulants | CPT/HCPCS: 85610 ==

== ENCOUNTER 2018-07-27 20:59 | Emergency (ER) | payer MEDICARE, OTHER ==
[2018-07-27 21:26] LABS: BASOPHILS # (AUTO) 0.1 10^3/uL (0.0-0.1); EOSINOPHILS # (AUTO) 0.3 10^3/uL (0.0-0.7); EOSINOPHILS % (AUTO) 3.6 %; HGB - HEMOGLOBIN 13.3 g/dL (14.0-18.0); LYMPHOCYTES # (AUTO) 0.8 10^3/uL (1.5-3.5); LYMPHOCYTES % (AUTO) 11.4 %; MEAN CORPUSCULAR HEMOGLOBIN 31.9 pg (27.0-31.0); MEAN CORPUSCULAR HGB CONC 34.5 g/dL (32.0-36.0); MEAN CORPUSCULAR VOLUME 92.5 fL (80.0-94.0); MEAN PLATELET VOLUME 7.9 fL (7.4-11.4); MONOCYTES # (AUTO) 0.5 10^3/uL (0.0-1.0); MONOCYTES % (AUTO) 6.4 %; NEUTROPHILS # (AUTO) 5.7 10^3/uL (1.5-6.6); NEUTROPHILS % (AUTO) 77.6 %; PLT - PLATELET COUNT 139 10^3/uL (130-450); RED BLOOD COUNT 4.16 10^6/uL (4.70-6.10); RED CELL DISTRIBUTION WIDTH 13.8 % (12.0-15.0); WHITE BLOOD COUNT 7.3 x10^3/uL (4.8-10.8)
[2018-07-27] MEDS ORDERED: OXYMETAZOLINE NASAL SPRAY NAS STA (21:32)
[2018-07-27 21:34] LABS: PT - PROTHROMBIN TIME 33.7 secs (9.9-12.6)
[2018-07-27 21:35] LABS: CALCIUM 8.6 mg/dL (8.5-10.3); CREATININE 0.9 mg/dL (0.6-1.2)
[2018-07-27] MEDS ORDERED: COCAINE 4 ML BOTTLE TOP STA (21:35)
--- NOTE | 2018-07-27 22:59 | ED Physician Documentation ---
PD HPI HEENT - Stated complaint Stated Complaint: NOSE BLEED - Chief complaint Chief Complaint: Heent - Additional information Additional information: 73-year-old male presents the emergency department with bleeding from the left nose which started intermittently today. The bleeding has been controlled with pressure. The patient is on Coumadin. The patient has been cauterized in that same nose in the past. The patient denies any recent trauma or injury. Symptoms are described as moderate Review of Systems Constitutional: denies: Fever, Chills Eyes: denies: Discharge Ears: denies: Ear pain Nose: reports: Epistaxis Throat: denies: Sore throat Cardiac: denies: Chest pain / pressure Respiratory: denies: Dyspnea GI: denies: Abdominal Pain Neurologic: denies: Focal weakness, Near syncope, Syncope PD PAST MEDICAL HISTORY - Past Medical History Cardiovascular: Hypertension, High cholesterol, Atrial fibrillation Respiratory: None Endocrine/Autoimmune: None GI: GERD : None HEENT: None Psych: None Musculoskeletal: None Derm: None - Past Surgical History Past Surgical History: Yes Cardiovascular: Other - Present Medications Home Medications: Ambulatory Orders Medication Instructions Recorded Confirmed Losartan [Cozaar] 50 mg PO DAILY 01/20/14 07/01/18 Omeprazole 20 mg PO DAILY 01/20/14 07/01/18 Hydrochlorothiazide 12.5 mg PO DAILY 05/06/15 07/01/18 Warfarin [Coumadin] 5 mg PO DAILY 05/06/15 07/01/18 Aspirin 1 tab PO DAILY 07/01/18 07/01/18 Atorvastatin Calcium 1 tab PO DAILY 07/01/18 07/01/18 Clopidogrel [Plavix] 1 tab PO DAILY 07/01/18 07/01/18 Diltiazem HCl [Diltiazem ER] 120 mg PO DAILY 07/01/18 07/01/18 Warfarin Sodium 1 tab PO DAILY 07/01/18 07/01/18 raNITIdine [Zantac] 1 tab PO BID 07/01/18 07/01/18 Cephalexin [Keflex] 500 mg PO Q6H #12 capsule 07/11/18 - Allergies Allergies/Adverse Reactions: Allergies Allergy/AdvReac Type Severity Reaction Status Date / Time Sulfa (Sulfonamide Allergy Unknown Verified 07/27/18 21:05 Antibiotics) - Social History Does the pt smoke?: No Smoking Status: Never smoker Does the pt drink ETOH?: No Does the pt have substance abuse?: No - Immunizations Immunizations are current?: Yes Immunizations: TDAP >10years/unknown, No immun - POLST Patient has POLST: No PD ED PE NORMAL - General General: Alert and oriented X 3, No acute distress - HEENT HEENT: Atraumatic, PERRL, Other (In the left naris there is an anterior area of bleeding along the septum. The right naris is unremarkable. There is no evidence of posterior bleeding) - Derm Derm: Normal color - Extremities Extremities: No deformity - Neuro Neuro: Alert and oriented X 3, Normal speech - Psych Psych: Normal affect Results - Vitals Vitals: Vital Signs - 24 hr 07/27/18 07/27/18 21:02 21:14 Temperature 36.5 C Heart Rate 54 L 54 L Respiratory 20 20 Rate Blood Pressure 151/68 H 151/68 H O2 Saturation 99 100 Oxygen O2 Source Room air - Labs Labs: Laboratory Tests 07/27/18 07/27/18 07/27/18 21:21 21:21 21:21 WBC 7.3 RBC 4.16 L Hgb 13.3 L Hct 38.5 L MCV 92.5 MCH 31.9 H MCHC 34.5 RDW 13.8 Plt Count 139 MPV 7.9 Neut # (Auto) 5.7 Lymph # (Auto) 0.8 L [place] # (Auto) 0.5 Eos # (Auto) 0.3 Baso # (Auto) 0.1 Absolute Nucleated RBC 0.01 Nucleated RBC % 0.1 PT 33.7 H INR 3.0 H Sodium 137 Potassium 3.8 Chloride 96 L Carbon Dioxide 31 Anion Gap 10.0 BUN 24 H Creatinine 0.9 Estimated GFR (MDRD) 82 L Glucose 114 H Calcium 8.6 Procedures - Epistaxis Site: Left Preparation: Clots removed, Cocaine Treatment: Anterior rhinorocket, Packing inserted Other: Observed - no bleeding, Pt tolerated well. No: Antibiotics prescribed (No antibiotics were prescribed since the patient is on Coumadin and the antibiotics most likely would cause his INR to be significantly elevated and the patient will Only have the packing in for a short time. I discussed this with the patient and he is comfortable with this plan. I advised that if the packing were to stand longer than 5 days he will need to be started on antibiotics to prevent a sinus infection. The patient understandsAnd agrees to the plan) PD MEDICAL DECISION MAKING - ED course ED course: The patient's nosebleed was controlled with a nasal packing, the patient was observed in the emergency department and currently appears appropriate for discharge and ongoing outpatient management. I advised follow-up with ENT for packing removal and reassessment. They understand and agree. I discussed warning signs recommended returning to the emergency department for any worsening or any concerns Departure - Departure Disposition: Home, Self Care Clinical Impression: Epistaxis Condition: Good Instructions: Nosebleed Follow-Up: [facility] [Provider Group] (Please call to schedule appointment for packing removal for Monday) Comments: Please return to the emergency department for worsening symptoms or any concerns
[2018-07-27 23:05] VITALS: BP 140/78
== END 2018-07-27 23:18 | disposition home or self-care (01) ==
LOC: ED 20:59
DX: R04.0 Epistaxis (principal); I10 Essential (primary) hypertension; Z79.01 Long term (current) use of anticoagulants
CPT/HCPCS: 30901; 36415; 80048; 85025; 85610; 99282; 99283

== ENCOUNTER 2018-08-09 08:53 | Outpatient (CLI) | payer MEDICARE, OTHER | END 2018-08-09 08:54 | disposition home or self-care (01) | LOC: LAB.F 08:53 | PROVIDERS: ATTEND Family Medicine | DX: I48.91 Unspecified atrial fibrillation (principal); Z79.01 Long term (current) use of anticoagulants | CPT/HCPCS: 85610 ==

== ENCOUNTER 2018-08-22 15:39 | Outpatient (CLI) | payer MEDICARE, OTHER | END 2018-08-22 23:59 | disposition home or self-care (01) | LOC: LAB.F 15:39 | PROVIDERS: ATTEND Family Medicine | DX: I48.91 Unspecified atrial fibrillation (principal); Z79.01 Long term (current) use of anticoagulants | CPT/HCPCS: 85610 ==

== ENCOUNTER 2018-09-03 07:17 | Outpatient (CLI) | payer MEDICARE, OTHER | END 2018-09-03 07:18 | disposition home or self-care (01) | LOC: LAB.F 07:17 | PROVIDERS: ATTEND Family Medicine | DX: Z79.01 Long term (current) use of anticoagulants (principal); I48.91 Unspecified atrial fibrillation | CPT/HCPCS: 85610 ==

== ENCOUNTER 2018-09-17 07:04 | Outpatient (CLI) | payer MEDICARE, OTHER | END 2018-09-17 07:05 | disposition home or self-care (01) | LOC: LAB.F 07:04 | PROVIDERS: ATTEND Family Medicine | DX: I48.91 Unspecified atrial fibrillation (principal); Z79.01 Long term (current) use of anticoagulants | CPT/HCPCS: 85610 ==

== ENCOUNTER 2018-10-18 07:15 | Outpatient (CLI) | payer MEDICARE, OTHER | END 2018-10-18 07:16 | disposition home or self-care (01) | LOC: LAB.F 07:15 | PROVIDERS: ATTEND Family Medicine | DX: I48.91 Unspecified atrial fibrillation (principal); Z79.01 Long term (current) use of anticoagulants | CPT/HCPCS: 85610 ==

== ENCOUNTER 2018-12-04 09:35 | Outpatient (CLI) | payer MEDICARE, OTHER | END 2018-12-04 09:36 | disposition home or self-care (01) | LOC: LAB.S 09:35 | PROVIDERS: ATTEND Family Medicine | DX: I48.91 Unspecified atrial fibrillation (principal); Z79.01 Long term (current) use of anticoagulants | CPT/HCPCS: 85610 ==

== ENCOUNTER 2018-12-24 | Outpatient (CLI) | payer MEDICARE, OTHER | END 2018-12-24 09:10 | disposition home or self-care (01) ==

== ENCOUNTER 2018-12-31 08:55 | Outpatient (CLI) | payer MEDICARE, OTHER | END 2018-12-31 08:56 | disposition home or self-care (01) | LOC: LAB.S 08:55 | PROVIDERS: ATTEND Family Medicine | DX: Z79.01 Long term (current) use of anticoagulants (principal); I48.91 Unspecified atrial fibrillation | CPT/HCPCS: 85610 ==

== ENCOUNTER 2019-01-08 08:59 | Outpatient (CLI) | payer MEDICARE, OTHER | END 2019-01-08 09:00 | disposition home or self-care (01) | LOC: LAB.S 08:59 | PROVIDERS: ATTEND Internal Medicine Nephrology | DX: N05.9 Unspecified nephritic syndrome with unspecified morphologic changes (principal) ==

== ENCOUNTER 2019-01-08 09:25 | Outpatient (CLI) | payer MEDICARE, OTHER | END 2019-01-08 09:26 | disposition home or self-care (01) | LOC: LAB.S 09:25 | PROVIDERS: ATTEND Family Medicine | DX: I48.91 Unspecified atrial fibrillation (principal); Z79.01 Long term (current) use of anticoagulants; N05.9 Unspecified nephritic syndrome with unspecified morphologic changes | CPT/HCPCS: 85610 ==

== ENCOUNTER 2019-01-28 08:51 | Outpatient (CLI) | payer MEDICARE, OTHER | END 2019-01-28 08:52 | disposition home or self-care (01) | LOC: LAB.S 08:51 | PROVIDERS: ATTEND Family Medicine | DX: I48.91 Unspecified atrial fibrillation (principal); Z79.01 Long term (current) use of anticoagulants | CPT/HCPCS: 85610 ==

== ENCOUNTER 2019-02-04 10:58 | Outpatient (CLI) | payer MEDICARE, OTHER | END 2019-02-04 10:59 | disposition home or self-care (01) | LOC: LAB.S 10:58 | PROVIDERS: ATTEND Family Medicine | DX: I48.91 Unspecified atrial fibrillation (principal); Z79.01 Long term (current) use of anticoagulants | CPT/HCPCS: 85610 ==

== ENCOUNTER 2019-03-05 15:05 | Outpatient (CLI) | payer MEDICARE, OTHER | END 2019-03-05 15:06 | disposition home or self-care (01) | LOC: LAB.S 15:05 | PROVIDERS: ATTEND Family Medicine | DX: Z79.01 Long term (current) use of anticoagulants (principal); I48.91 Unspecified atrial fibrillation | CPT/HCPCS: 85610 ==

== ENCOUNTER 2019-04-15 07:05 | Outpatient (CLI) | payer MEDICARE, OTHER | END 2019-04-15 07:06 | disposition home or self-care (01) | LOC: LAB.S 07:05 | PROVIDERS: ATTEND Family Medicine | DX: Z79.01 Long term (current) use of anticoagulants (principal); I48.91 Unspecified atrial fibrillation | CPT/HCPCS: 85610 ==

== ENCOUNTER 2019-05-13 07:58 | Outpatient (CLI) | payer MEDICARE, OTHER | END 2019-05-13 07:59 | disposition home or self-care (01) | LOC: LAB.S 07:58 | PROVIDERS: ATTEND Family Medicine | DX: Z79.01 Long term (current) use of anticoagulants (principal); I48.91 Unspecified atrial fibrillation | CPT/HCPCS: 85610 ==

== ENCOUNTER 2019-05-27 10:29 | Outpatient (CLI) | payer MEDICARE, OTHER | END 2019-05-27 10:30 | disposition home or self-care (01) | LOC: LAB.S 10:29 | PROVIDERS: ATTEND Family Medicine | DX: Z79.01 Long term (current) use of anticoagulants (principal); I48.91 Unspecified atrial fibrillation | CPT/HCPCS: 85610 ==

== ENCOUNTER 2019-07-16 08:03 | Outpatient (CLI) | payer MEDICARE, OTHER | END 2019-07-16 08:04 | disposition home or self-care (01) | LOC: LAB.S 08:03 | PROVIDERS: ATTEND Family Medicine | DX: I48.91 Unspecified atrial fibrillation (principal); Z79.01 Long term (current) use of anticoagulants | CPT/HCPCS: 85610 ==

== ENCOUNTER 2019-07-23 10:51 | Outpatient (CLI) | payer MEDICARE, OTHER ==
--- NOTE | 2019-07-23 16:56 | Ultrasound Report ---
Reason: PAIN IN RIGHT THIGH Procedure Date: 07/23/2019 Accession Number: [id number] / [id number] Procedure: US - Duplex Ext Veins Right CPT Code: Final Report FULL RESULT: EXAM: RIGHT LOWER EXTREMITY VENOUS ULTRASOUND EXAM DATE: 07/23/2019 11:38 AM. CLINICAL HISTORY: PAIN IN RIGHT THIGH. COMPARISON: None. TECHNIQUE: Real-time sonographic vascular imaging was performed by the power project manager through the lower extremity utilizing both color-flow and Doppler spectral analysis. Multiple wine sales representative static images were saved for review. FINDINGS: Common Femoral Vein (CFV): Normal. CFV-GSV Junction: Normal. Profunda Femoral Vein (PFV): Normal. Femoral Vein (FV) Prox: Normal. Femoral Vein (FV) Mid: Normal. Femoral Vein (FV) Dist: Normal. Popliteal Vein: Normal. Posterior Tibial Veins: Normal. Peroneal Veins: Normal. Other: None. IMPRESSION: No evidence for right lower extremity deep venous thrombosis. RADIA
== END 2019-07-23 10:52 | disposition home or self-care (01) ==
LOC: DI 10:51
PROVIDERS: ATTEND Nurse Practitioner Family
DX: M79.651 Pain in right thigh (principal)

== ENCOUNTER 2019-09-13 10:18 | Outpatient (CLI) | payer MEDICARE, OTHER | END 2019-09-13 10:19 | disposition home or self-care (01) | LOC: LAB 10:18 | PROVIDERS: ATTEND Family Medicine | DX: I48.91 Unspecified atrial fibrillation (principal); Z79.01 Long term (current) use of anticoagulants | CPT/HCPCS: 85610 ==

== ENCOUNTER 2019-09-26 10:10 | Outpatient (CLI) | payer MEDICARE, OTHER | END 2019-09-26 10:11 | disposition home or self-care (01) | LOC: LAB 10:10 | PROVIDERS: ATTEND Family Medicine | DX: I48.91 Unspecified atrial fibrillation (principal); Z79.01 Long term (current) use of anticoagulants | CPT/HCPCS: 85610 ==

== ENCOUNTER 2019-12-13 14:56 | Outpatient (CLI) | payer MEDICARE, OTHER ==
--- NOTE | 2019-12-13 15:43 | XRAY Report ---
PROCEDURE: Hand 3 View LT INDICATIONS: LT HAND PAIN TECHNIQUE: 3 views of the hand(s) acquired. COMPARISON: None FINDINGS: Bones: No fractures or dislocations. No suspicious bony lesions. Diffuse mild to moderate IP degen erative narrowing. Scattered areas of periarticular osteophytes are present. Mild to moderate first C MC degenerative narrowing is present. Small areas of periarticular lucency are noted. Soft tissues: No suspicious soft tissue calcifications. IMPRESSION: Diffuse areas of IP and first CMC degenerative narrowing suggestive of osteoarthritis. No visualized acute fracture or dislocation. However, occult injury cannot be excluded. Recommend short interval im aging follow-up in 7-10 days as clinically indicated for additional evaluation. Reviewed by: Alexus Field MD on 12/13/2019 3:42 PM PDT Approved by: Alexus Field MD on 12/13/2019 3:42 PM PDT Station ID: [id number]
== END 2019-12-13 14:57 | disposition home or self-care (01) ==
LOC: DI 14:56
PROVIDERS: ATTEND Family Medicine
DX: M18.12 Unilateral primary osteoarthritis of first carpometacarpal joint, left hand (principal); M19.042 Primary osteoarthritis, left hand

== ENCOUNTER 2020-03-16 09:00 | Outpatient (CLI) | payer MEDICARE, OTHER ==
[2020-03-16 15:38] LABS: BASOPHILS % (AUTO) 1.1 %; EOSINOPHILS % (AUTO) 4.1 %; HGB - HEMOGLOBIN 14.7 g/dL (14.0-18.0); LYMPHOCYTES % (AUTO) 13.3 %; MEAN CORPUSCULAR HEMOGLOBIN 32.4 pg (27.0-31.0); MEAN CORPUSCULAR HGB CONC 34.8 g/dL (32.0-36.0); MEAN CORPUSCULAR VOLUME 93.2 fL (80.0-94.0); MEAN PLATELET VOLUME 11.2 fL (7.4-11.4); MONOCYTES % (AUTO) 6.5 %; NEUTROPHILS % (AUTO) 74.7 %; PLT - PLATELET COUNT 149 10^3/uL (130-450); RED BLOOD COUNT 4.54 10^6/uL (4.70-6.10); RED CELL DISTRIBUTION WIDTH 13.4 % (12.0-15.0); WHITE BLOOD COUNT 6.2 x10^3/uL (4.8-10.8)
[2020-03-16 15:44] LABS: ABNORMAL LYMPHS % (MANUAL) 0 %
[2020-03-16 15:52] LABS: ALBUMIN 3.8 g/dL (3.2-5.5); ALBUMIN/GLOBULIN RATIO 1.3 (1.0-2.2); BILIRUBIN,TOTAL 0.9 mg/dL (0.2-1.0); CALCIUM 8.5 mg/dL (8.5-10.3); CREATININE 0.8 mg/dL (0.6-1.2); TOTAL PROTEIN 6.7 g/dL (6.7-8.2)
[2020-03-16 16:45] LABS: BAND NEUTROPHILS % (MANUAL) 11 %; BASOPHILS # (MANUAL) 0.1 10^3/uL (0-0.1); BASOPHILS % (MANUAL) 1 %; EOSINOPHILS # (MANUAL) 0.1 10^3/uL (0-0.7); LYMPHOCYTES # (MANUAL) 0.8 10^3/uL (1.5-3.5); LYMPHOCYTES % (MANUAL) 9 %; MONOCYTES # (MANUAL) 0.3 10^3/uL (0.0-1.0)
[2020-03-16 16:50] LABS: DIFFERENTIAL COMMENT MANUAL DIFFERENTIAL; PLATELET ESTIMATE, MANUAL NORMAL (130-450,000) (NORMAL); PLATELET MORPHOLOGY NORMAL APPEARANCE (NORMAL); RBC MORPHOLOGY (MULTIPLE) NORMAL APPEARANCE (NORMAL)
== END 2020-03-16 09:01 | disposition home or self-care (01) ==
LOC: LAB.S 09:00
PROVIDERS: ATTEND Physician Assistant
DX: D69.6 Thrombocytopenia, unspecified (principal); E83.51 Hypocalcemia
CPT/HCPCS: 36415; 80053; 82306; 83970; 85025

== ENCOUNTER 2020-04-17 00:27 | Outpatient (CLI) | payer MEDICARE, OTHER | END 2020-04-17 23:59 | disposition critical access hospital (66) | LOC: EMS 00:27 | PROVIDERS: ATTEND Surgery | DX: R07.9 Chest pain, unspecified (principal) | CPT/HCPCS: A0425; A0427 ==

== ENCOUNTER 2020-04-17 00:57 | Emergency (ER) | payer MEDICARE, OTHER ==
--- NOTE | 2020-04-17 01:10 | ED Physician Documentation ---
PD HPI CHEST PAIN - Stated complaint Stated Complaint: CP - Chief complaint Chief Complaint: Cardiac - History obtained from History obtained from: Patient, EMS - History of Present Illness Timing - onset: Enter time (00:00 (midnight)), Today Timing - onset during: Sleep Timing - details: Abrupt onset Pain level max: 5 Pain level now: 0 Quality: Pain Location: Substernal Radiation: Other (no radiation) Improved by: Nitro Worsened by: Other (no exacerbating factors) Associated symptoms: No: Shortness of air, Diaphoresis, Nausea, Vomiting, F eeling faint / dizzy, General Weakness, Palpitations, Cough Similar symptoms before: Has not had sx before Recently seen: Not recently seen Review of Systems Constitutional: reports: Reviewed and negative Cardiac: reports: Chest pain / pressure. denies: Palpitations, Pedal edema Respiratory: reports: Reviewed and negative GI: reports: Reviewed and negative : denies: Dysuria, Frequency PD PAST MEDICAL HISTORY - Past Medical History Cardiovascular: Hypertension, High cholesterol, Atrial fibrillation Respiratory: None Endocrine/Autoimmune: None GI: GERD : None HEENT: None Psych: None Musculoskeletal: None Derm: None - Past Surgical History Past Surgical History: Yes Cardiovascular: Other - Present Medications Home Medications: Ambulatory Orders Medication Instructions Recorded Confirmed Losartan [Cozaar] 50 mg PO DAILY 01/20/14 04/17/20 Omeprazole 20 mg PO DAILY 01/20/14 04/17/20 Hydrochlorothiazide 12.5 mg PO DAILY 05/06/15 04/17/20 Warfarin [Coumadin] 4 mg PO DAILY 05/06/15 04/17/20 Atorvastatin Calcium 1 tab PO DAILY 07/01/18 04/17/20 Clopidogrel [Plavix] 1 tab PO DAILY 07/01/18 04/17/20 Warfarin Sodium 2 mg PO DAILY 07/01/18 04/17/20 dilTIAZem HCl [Diltiazem ER] 120 mg PO DAILY 07/01/18 04/17/20 Nitroglycerin [Nitrostat] 0.4 mg SL ONCE PRN #20 tablet 04/17/20 - Allergies Allergies/Adverse Reactions: Allergies Allergy/AdvReac Type Severity Reaction Status Date / Time Sulfa (Sulfonamide Allergy Unknown Verified 04/17/20 01:08 Antibiotics) - Social History Does the pt smoke?: No Smoking Status: Never smoker Does the pt drink ETOH?: No Does the pt have substance abuse?: No - Immunizations Immunizations are current?: Yes Immunizations: TDAP >10years/unknown, No immun - POLST Patient has POLST: No PD ED PE NORMAL - Vitals Vital signs reviewed: Yes - General General: Alert and oriented X 3, No acute distress, Well developed/nourished - HEENT HEENT: Moist mucous membranes - Neck Neck: Supple, no meningeal sign - Cardiac Cardiac: RRR, No murmur - Respiratory Respiratory: No respiratory distress, Clear bilaterally - Abdomen Abdomen: Soft, Non tender, Non distended - Derm Derm: Normal color, Warm and dry - Extremities Extremities: No edema Results - Vitals Vitals: Oxygen O2 Source Room air - EKG (time done) No standard instances Rate: Rate (enter#) (56) Rhythm: NSR [place]: Normal Intervals: Normal MI QRS: Normal Ischemia: Normal ST segments - Labs Labs: Laboratory Tests 04/17/20 04/17/20 04/17/20 01:10 01:10 01:10 WBC 9.0 RBC 4.36 L Hgb 13.7 L Hct 41.0 L MCV 94.0 MCH 31.4 H MCHC 33.4 RDW 13.7 Plt Count 148 MPV 10.5 Neut # (Auto) 7.0 H Lymph # (Auto) 1.0 L [place] # (Auto) 0.8 Eos # (Auto) 0.0 Baso # (Auto) 0.0 Absolute Nucleated RBC 0.00 Nucleated RBC % 0.0 Sodium 138 Potassium 3.8 Chloride 104 Carbon Dioxide 25 Anion Gap 9.0 BUN 25 H Creatinine 0.9 Estimated GFR (MDRD) 82 L Glucose 137 H Calcium 8.8 Total Bilirubin 0.9 AST 23 ALT 32 Alkaline Phosphatase 110 Troponin I High Sens 4.2 Total Protein 6.4 L Albumin 3.8 Globulin 2.6 Albumin/Globulin Ratio 1.5 Lipase 51 - Rads (name of study) chest xray Radiology: Prelim report reviewed, See rad report PD MEDICAL DECISION MAKING - ED course Complexity details: reviewed results, re-evaluated patient, considered differential, d/w patient Departure - Departure Disposition: 01 Home, Self Care Clinical Impression: Chest pain Condition: Good Instructions: Nitroglycerin Fast Act Dc, ED Chest Pain Atypical Unkn Cause Follow-Up: DDIGNA THOMSON PA [Primary Care Provider] - Within 1 week Prescriptions: Nitroglycerin [Nitrostat] 0.4 mg SL ONCE PRN #20 tablet PRN Reason: Chest Pain Discharge Date/Time: 04/17/20 05:27
[2020-04-17 01:16] LABS: BASOPHILS % (AUTO) 0.2 %; EOSINOPHILS % (AUTO) 0.4 %; HGB - HEMOGLOBIN 13.7 g/dL (14.0-18.0); LYMPHOCYTES % (AUTO) 10.8 %; MEAN CORPUSCULAR HEMOGLOBIN 31.4 pg (27.0-31.0); MEAN CORPUSCULAR HGB CONC 33.4 g/dL (32.0-36.0); MEAN PLATELET VOLUME 10.5 fL (7.4-11.4); MONOCYTES # (AUTO) 0.8 10^3/uL (0.0-1.0); MONOCYTES % (AUTO) 9.1 %; NEUTROPHILS % (AUTO) 78.5 %; PLT - PLATELET COUNT 148 10^3/uL (130-450); RED BLOOD COUNT 4.36 10^6/uL (4.70-6.10); RED CELL DISTRIBUTION WIDTH 13.7 % (12.0-15.0)
[2020-04-17 01:29] LABS: ALBUMIN 3.8 g/dL (3.2-5.5); ALBUMIN/GLOBULIN RATIO 1.5 (1.0-2.2); BILIRUBIN,TOTAL 0.9 mg/dL (0.2-1.0); CALCIUM 8.8 mg/dL (8.5-10.3); CREATININE 0.9 mg/dL (0.6-1.2); TOTAL PROTEIN 6.4 g/dL (6.7-8.2)
[2020-04-17 05:27] VITALS: BP 157/78
--- NOTE | 2020-04-17 08:07 | XRAY Report ---
PROCEDURE: Chest 1 View X-Ray INDICATIONS: Chest pain TECHNIQUE: One view of the chest was acquired. COMPARISON: 10/05/2014 FINDINGS: Surgical changes and devices: None. Lungs and pleura: No pleural effusions or pneumothorax. Lungs are clear. Mediastinum: Mediastinal contours appear normal. Heart size is normal. Bones and chest wall: No suspicious bony lesions. Overlying soft tissues appear unremarkable. IMPRESSION: No acute finding. Reviewed by: Lamine Peres MD on 04/17/2020 8:06 AM [facility] Approved by: Lamine Peres MD on 04/17/2020 8:06 AM [facility] Station ID: [id number]
== END 2020-04-17 05:27 | disposition home or self-care (01) ==
LOC: EDUNIT# → ED 00:57
DX: R07.89 Other chest pain (principal); I10 Essential (primary) hypertension; I48.91 Unspecified atrial fibrillation; Z79.01 Long term (current) use of anticoagulants; Z79.02 Long term (current) use of antithrombotics/antiplatelets; K21.9 Gastro-esophageal reflux disease without esophagitis
CPT/HCPCS: 36415; 71045; 80053; 83690; 84484; 85025; 93005; 99284

== ENCOUNTER 2020-09-24 22:07 | Emergency (ER) | payer MEDICARE, OTHER ==
--- NOTE | 2020-09-24 22:16 | ED Physician Documentation ---
History of Present Illness - Stated complaint Stated Complaint: IRREGULAR HEART BEAT - History obtained from History obtained from: Patient - History of Present Illness Timing: Enter time (21:00), Today Pain level max: 0 Pain level now: 0 Improved by: nothing Worsened by: exertion - Additonal information Additional information: c/o sudden onset of rapid and irregular palpitations 9 PM tonight while driving home from the grocery store. he recognized the symptom as his DEB. he is on warfarin. he says he is usually in NSR and that he can feel when he is in atrial fibrillation, particularly when it is rapid. Review of Systems Constitutional: reports: Reviewed and negative Cardiac: reports: Palpitations. denies: Chest pain / pressure, Pedal edema, Calf pain Respiratory: reports: Reviewed and negative GI: reports: Reviewed and negative Musculoskeletal: denies: Extremity swelling PD PAST MEDICAL HISTORY - Past Medical History Cardiovascular: Hypertension, High cholesterol, Atrial fibrillation Respiratory: None Endocrine/Autoimmune: None GI: GERD : None HEENT: None Psych: None Musculoskeletal: None Derm: None - Past Surgical History Past Surgical History: Yes Cardiovascular: Other - Present Medications Home Medications: Ambulatory Orders Medication Instructions Recorded Confirmed Losartan [Cozaar] 50 mg PO DAILY 01/20/14 04/17/20 Omeprazole 20 mg PO DAILY 01/20/14 04/17/20 Hydrochlorothiazide 12.5 mg PO DAILY 05/06/15 04/17/20 Warfarin [Coumadin] 4 mg PO DAILY 05/06/15 04/17/20 Atorvastatin Calcium 1 tab PO DAILY 07/01/18 04/17/20 Clopidogrel [Plavix] 1 tab PO DAILY 07/01/18 04/17/20 Warfarin Sodium 2 mg PO DAILY 07/01/18 04/17/20 dilTIAZem HCl [Diltiazem ER] 120 mg PO DAILY 07/01/18 04/17/20 Nitroglycerin [Nitrostat] 0.4 mg SL ONCE PRN #20 tablet 04/17/20 - Allergies Allergies/Adverse Reactions: Allergies Allergy/AdvReac Type Severity Reaction Status Date / Time Sulfa (Sulfonamide Allergy Unknown Verified 09/24/20 22:12 Antibiotics) - Social History Does the pt smoke?: No Smoking Status: Never smoker Does the pt drink ETOH?: No Does the pt have substance abuse?: No - Immunizations Immunizations are current?: Yes Immunizations: TDAP >10years/unknown, No immun - POLST Patient has POLST: No PD ED PE NORMAL - Vitals Vital signs reviewed: Yes - General General: Alert and oriented X 3, No acute distress, Well developed/nourished - Neck Neck: Supple, no meningeal sign - Cardiac Cardiac: No murmur - Respiratory Respiratory: No respiratory distress, Clear bilaterally - Abdomen Abdomen: Soft, Non tender - Derm Derm: Normal color, Warm and dry - Extremities Extremities: No edema PD ED PE EXPANDED - Cardiac Cardiac: Tachy, Irregularly irregular Results - Vitals Vitals: Oxygen O2 Source Room air - EKG (time done) No standard instances Rate: Rate (enter#) (108) Rhythm: Atrial fibrillation [place]: Normal Ischemia: Normal ST segments - Labs Labs: Laboratory Tests 09/24/20 09/24/20 09/24/20 22:34 22:34 22:34 WBC 8.9 RBC 4.98 Hgb 15.9 Hct 45.4 MCV 91.2 MCH 31.9 H MCHC 35.0 RDW 13.6 Plt Count 133 MPV 10.6 Neut # (Auto) 6.7 H Lymph # (Auto) 1.2 L [place] # (Auto) 0.6 Eos # (Auto) 0.2 Baso # (Auto) 0.1 Absolute Nucleated RBC 0.00 Nucleated RBC % 0.0 PT 24.6 H INR 2.3 H APTT 43.0 H Sodium 140 Potassium 3.4 L Chloride 104 Carbon Dioxide 26 Anion Gap 10.0 BUN 23 H Creatinine 0.7 Estimated GFR (MDRD) 110 Glucose 144 H Calcium 9.1 Magnesium Total Bilirubin 1.0 AST 25 ALT 32 Alkaline Phosphatase 111 Total Protein 7.4 Albumin 4.3 Globulin 3.1 Albumin/Globulin Ratio 1.4 Lipase 33 09/24/20 22:34 WBC RBC Hgb Hct MCV MCH MCHC RDW Plt Count MPV Neut # (Auto) Lymph # (Auto) [place] # (Auto) Eos # (Auto) Baso # (Auto) Absolute Nucleated RBC Nucleated RBC % PT INR APTT Sodium Potassium Chloride Carbon Dioxide Anion Gap BUN Creatinine Estimated GFR (MDRD) Glucose Calcium Magnesium 2.3 Total Bilirubin AST ALT Alkaline Phosphatase Total Protein Albumin Globulin Albumin/Globulin Ratio Lipase PD MEDICAL DECISION MAKING - ED course Complexity details: reviewed results, re-evaluated patient, considered differential, d/w patient ED course: rate control achieved with single dose of IV cardizem 20 mg. reassuring lab results. he did not convert to NSR but he is appropriately anticoagulated with warfarin and appropriate for d/c Departure - Departure Disposition: 01 Home, Self Care Clinical Impression: Atrial fibrillation Instructions: ED Afib Follow-Up: Derik Jay MD [Primary Care Provider] - Comments: Contact your slide forming machine tender in the morning to ask about whether any medication changes are recommended. At this time, I suggest you take your medications as prescribed; as we discussed, if you have recurrence of your rapid palpitations, it would be reasonable to take an extra dose of the cardizem as long as your blood pressure is 120 or higher systolic (top number) and above 60 diastolic (lower number). If you take the extra dose of cardizem, please only do so one time until and unless instructed otherwise by your slide forming machine tender Discharge Date/Time: 09/25/20 00:17
[2020-09-24] MEDS ORDERED: diltiaZEM INJ 5 MG/ML VIAL IVP STA (22:31)
[2020-09-24 22:42] LABS: BASOPHILS # (AUTO) 0.1 10^3/uL (0.0-0.1); BASOPHILS % (AUTO) 0.9 %; EOSINOPHILS # (AUTO) 0.2 10^3/uL (0.0-0.7); HCT - HEMATOCRIT 45.4 % (42.0-52.0); HGB - HEMOGLOBIN 15.9 g/dL (14.0-18.0); LYMPHOCYTES # (AUTO) 1.2 10^3/uL (1.5-3.5); LYMPHOCYTES % (AUTO) 13.6 %; MEAN CORPUSCULAR HEMOGLOBIN 31.9 pg (27.0-31.0); MEAN CORPUSCULAR VOLUME 91.2 fL (80.0-94.0); MEAN PLATELET VOLUME 10.6 fL (7.4-11.4); MONOCYTES # (AUTO) 0.6 10^3/uL (0.0-1.0); MONOCYTES % (AUTO) 7.1 %; NEUTROPHILS # (AUTO) 6.7 10^3/uL (1.5-6.6); NEUTROPHILS % (AUTO) 76.1 %; PLT - PLATELET COUNT 133 10^3/uL (130-450); RED BLOOD COUNT 4.98 10^6/uL (4.70-6.10); RED CELL DISTRIBUTION WIDTH 13.6 % (12.0-15.0); WHITE BLOOD COUNT 8.9 x10^3/uL (4.8-10.8)
[2020-09-24 22:46] LABS: INR 2.3 (0.8-1.2); PT - PROTHROMBIN TIME 24.6 secs (9.9-12.6)
[2020-09-24 22:54] LABS: ALBUMIN 4.3 g/dL (3.2-5.5); ALBUMIN/GLOBULIN RATIO 1.4 (1.0-2.2); CALCIUM 9.1 mg/dL (8.5-10.3); CREATININE 0.7 mg/dL (0.6-1.2); POTASSIUM 3.4 mmol/L (3.5-5.0); TOTAL PROTEIN 7.4 g/dL (6.7-8.2)
[2020-09-24] MEDS ORDERED: POTASSIUM CHLORIDE 20 MEQ TABLET PO STA (23:00)
[2020-09-25 00:16] VITALS: BP 132/70
== END 2020-09-25 00:17 | disposition home or self-care (01) ==
LOC: ED 22:07
DX: I48.91 Unspecified atrial fibrillation (principal); Z79.01 Long term (current) use of anticoagulants; I10 Essential (primary) hypertension
CPT/HCPCS: 36415; 80053; 83690; 83735; 85025; 85610; 85730; 93005; 96374; 99284; A9270

== ENCOUNTER 2022-05-19 13:58 | Outpatient (CLI) | payer MEDICARE, OTHER | END 2022-05-19 13:59 | disposition home or self-care (01) | LOC: LAB.S 13:58 | PROVIDERS: ATTEND Pharmacist Pharmacist Clinician (PhC)/ Clinical Pharmacy Specialist | DX: I48.0 Paroxysmal atrial fibrillation (principal) | CPT/HCPCS: 36416; 85610 ==

== ENCOUNTER 2022-06-07 07:48 | Outpatient (CLI) | payer MEDICARE, OTHER | END 2022-06-07 07:49 | disposition home or self-care (01) | LOC: LAB.S 07:48 | PROVIDERS: ATTEND Pharmacist Pharmacist Clinician (PhC)/ Clinical Pharmacy Specialist | DX: I48.0 Paroxysmal atrial fibrillation (principal) | CPT/HCPCS: 36416; 85610 ==

== ENCOUNTER 2022-06-24 07:14 | Outpatient (CLI) | payer MEDICARE, OTHER | END 2022-06-24 07:15 | disposition home or self-care (01) | LOC: LAB.S 07:14 | PROVIDERS: ATTEND Pharmacist Pharmacist Clinician (PhC)/ Clinical Pharmacy Specialist | DX: I48.0 Paroxysmal atrial fibrillation (principal) | CPT/HCPCS: 36416; 85610 ==

== ENCOUNTER 2022-08-08 08:03 | Outpatient (CLI) | payer MEDICARE, OTHER | END 2022-08-08 08:04 | disposition home or self-care (01) | LOC: LAB.S 08:03 | PROVIDERS: ATTEND Pharmacist Pharmacist Clinician (PhC)/ Clinical Pharmacy Specialist | DX: I48.0 Paroxysmal atrial fibrillation (principal) | CPT/HCPCS: 36416; 85610 ==

== ENCOUNTER 2022-08-29 07:35 | Outpatient (CLI) | payer MEDICARE, OTHER | END 2022-08-29 07:36 | disposition home or self-care (01) | LOC: LAB.S 07:35 | PROVIDERS: ATTEND Pharmacist Pharmacist Clinician (PhC)/ Clinical Pharmacy Specialist | DX: I48.0 Paroxysmal atrial fibrillation (principal) | CPT/HCPCS: 36416; 85610 ==

== ENCOUNTER 2022-10-10 08:50 | Outpatient (CLI) | payer MEDICARE, OTHER | END 2022-10-10 08:51 | disposition home or self-care (01) | LOC: LAB.S 08:50 | PROVIDERS: ATTEND Pharmacist Pharmacist Clinician (PhC)/ Clinical Pharmacy Specialist | DX: I48.0 Paroxysmal atrial fibrillation (principal) | CPT/HCPCS: 36416; 85610 ==

== ENCOUNTER 2022-10-24 08:24 | Outpatient (CLI) | payer MEDICARE, OTHER | END 2022-10-24 08:25 | disposition home or self-care (01) | LOC: LAB.S 08:24 | PROVIDERS: ATTEND Pharmacist Pharmacist Clinician (PhC)/ Clinical Pharmacy Specialist | DX: I48.0 Paroxysmal atrial fibrillation (principal) | CPT/HCPCS: 36416; 85610 ==

== ENCOUNTER 2022-11-14 09:36 | Outpatient (CLI) | payer MEDICARE, OTHER | END 2022-11-14 09:37 | disposition home or self-care (01) | LOC: LAB.S 09:36 | PROVIDERS: ATTEND Pharmacist Pharmacist Clinician (PhC)/ Clinical Pharmacy Specialist | DX: I48.0 Paroxysmal atrial fibrillation (principal) | CPT/HCPCS: 36416; 85610 ==

== ENCOUNTER 2023-01-11 08:16 | Outpatient (CLI) | payer MEDICARE, OTHER | END 2023-01-11 08:17 | disposition home or self-care (01) | LOC: LAB.S 08:16 | PROVIDERS: ATTEND Pharmacist Pharmacist Clinician (PhC)/ Clinical Pharmacy Specialist | DX: I48.0 Paroxysmal atrial fibrillation (principal) | CPT/HCPCS: 36416; 85610 ==

== ENCOUNTER 2023-01-24 07:42 | Outpatient (CLI) | payer MEDICARE, OTHER | END 2023-01-24 07:43 | disposition home or self-care (01) | LOC: LAB.S 07:42 | PROVIDERS: ATTEND Pharmacist Pharmacist Clinician (PhC)/ Clinical Pharmacy Specialist | DX: I48.0 Paroxysmal atrial fibrillation (principal) | CPT/HCPCS: 36416; 85610 ==

== ENCOUNTER 2023-03-06 07:23 | Outpatient (CLI) | payer MEDICARE, OTHER | END 2023-03-06 07:24 | disposition home or self-care (01) | LOC: LAB.S 07:23 | PROVIDERS: ATTEND Pharmacist Pharmacist Clinician (PhC)/ Clinical Pharmacy Specialist | DX: I48.0 Paroxysmal atrial fibrillation (principal) | CPT/HCPCS: 36416; 85610 ==

== ENCOUNTER 2023-03-16 07:17 | Outpatient (CLI) | payer MEDICARE, OTHER | END 2023-03-16 07:18 | disposition home or self-care (01) | LOC: LAB.S 07:17 | PROVIDERS: ATTEND Pharmacist Pharmacist Clinician (PhC)/ Clinical Pharmacy Specialist | DX: I48.0 Paroxysmal atrial fibrillation (principal) | CPT/HCPCS: 36416; 85610 ==

== ENCOUNTER 2023-03-20 07:56 | Outpatient (CLI) | payer MEDICARE, OTHER | END 2023-03-20 07:57 | disposition home or self-care (01) | LOC: LAB.S 07:56 | PROVIDERS: ATTEND Pharmacist Pharmacist Clinician (PhC)/ Clinical Pharmacy Specialist | DX: I48.0 Paroxysmal atrial fibrillation (principal) | CPT/HCPCS: 36416; 85610 ==

== ENCOUNTER 2023-04-10 07:02 | Outpatient (CLI) | payer MEDICARE, OTHER | END 2023-04-10 07:03 | disposition home or self-care (01) | LOC: LAB.S 07:02 | PROVIDERS: ATTEND Pharmacist Pharmacist Clinician (PhC)/ Clinical Pharmacy Specialist | DX: I48.0 Paroxysmal atrial fibrillation (principal) | CPT/HCPCS: 36416; 85610 ==

== ENCOUNTER 2023-04-14 21:15 | Emergency (ER) | payer MEDICARE, OTHER ==
[2023-04-14] MEDS ORDERED: LIDOCAINE 1%-EPI 1:100000 20 ML MDV SUBQ STA (21:24)
[2023-04-14] MEDS ORDERED: SILVER NITRATE APPLICATOR TOP STA (21:24)
--- NOTE | 2023-04-14 21:25 | ED Physician Documentation ---
PD HPI SKIN - Stated complaint Stated Complaint: FACE LAC - Chief complaint Chief Complaint: Laceration - History obtained from History obtained from: Patient (77-year-old gentleman on warfarin for A-fib cut himself shaving tonight and will not stop bleeding.) PD PAST MEDICAL HISTORY - Past Medical History Past Medical History: Yes Cardiovascular: Hypertension, High cholesterol, Atrial fibrillation Respiratory: None Endocrine/Autoimmune: None GI: GERD : None HEENT: None Psych: None Musculoskeletal: None Derm: None - Past Surgical History Past Surgical History: Yes Cardiovascular: Other - Present Medications Home Medications: Ambulatory Orders Medication Instructions Recorded Confirmed Losartan [Cozaar] 50 mg PO DAILY 01/20/14 04/17/20 Omeprazole 20 mg PO DAILY 01/20/14 04/17/20 Warfarin [Coumadin] 4 mg PO DAILY 05/06/15 04/17/20 hydroCHLOROthiazide 12.5 mg PO DAILY 05/06/15 04/17/20 [Hydrochlorothiazide] Atorvastatin Calcium 1 tab PO DAILY 07/01/18 04/17/20 Clopidogrel [Plavix] 1 tab PO DAILY 07/01/18 04/17/20 Warfarin Sodium 2 mg PO DAILY 07/01/18 04/17/20 dilTIAZem HCl [Diltiazem ER] 120 mg PO DAILY 07/01/18 04/17/20 Nitroglycerin [Nitrostat] 0.4 mg SL ONCE PRN #20 tablet 04/17/20 - Allergies Allergies/Adverse Reactions: Allergies Allergy/AdvReac Type Severity Reaction Status Date / Time Sulfa (Sulfonamide Allergy Unknown Verified 04/14/23 21:18 Antibiotics) - Social History Does the pt smoke?: No Smoking Status: Never smoker Does the pt drink ETOH?: No Does the pt have substance abuse?: No - Immunizations Immunizations are current?: Yes Immunizations: TDAP >10years/unknown, No immun - POLST Patient has POLST: No PD ED PE NORMAL - Vitals Vital signs reviewed: Yes - General General: Alert and oriented X 3, No acute distress - HEENT HEENT: Other (Over the right jawline there is an area measuring about little over a centimeter in diameter where he basically shaved off a patch of skin. There is active pinpoint bleeding from the capillaries under it.) - Neuro Neuro: Alert and oriented X 3 Results - Vitals Vitals: Vital Signs - 24 hr 04/14/23 21:18 Temperature 36.5 C Heart Rate 73 Respiratory 16 Rate Blood Pressure 140/78 H O2 Saturation 94 Oxygen O2 Source Room air - Labs Labs: Laboratory Tests 04/14/23 21:32 INR (Fingerstick) 2.7 H Procedures - General procedure General procedure: The area on the right face that is actively bleeding was infiltrated locally with lidocaine with epinephrine. Then cauterized with silver nitrate and sealed with Dermabond. PD Medical Decision Making - ED course Complexity details: reviewed results (INR therapeutic 2.7.) Departure - Departure Disposition: 01 Home, Self Care Clinical Impression: Bleeding from wound, Adequate anticoagulation on anticoagulant therapy Condition: Good Record reviewed to determine appropriate education?: Yes Instructions: ED Laceration Facial Skin Glue Comments: Your INR today was 2.7. We stopped the bleeding with a combination of lidocaine with epinephrine, then cautery and skin glue. Leave the whole thing alone for a little bit. You can wash with soap and water. Return for new or worsening symptoms. Forms: PCP List
[2023-04-14 21:58] VITALS: BP 138/72; O2SAT 96
== END 2023-04-14 21:58 | disposition home or self-care (01) ==
LOC: ED 21:15
DX: S01.81XA Laceration without foreign body of other part of head, initial encounter (principal); W26.8XXA Contact with other sharp object(s), not elsewhere classified, initial encounter; Y93.E8 Activity, other personal hygiene; I48.91 Unspecified atrial fibrillation; Z79.01 Long term (current) use of anticoagulants
CPT/HCPCS: 85610; 99283

== ENCOUNTER 2023-05-16 07:07 | Outpatient (CLI) | payer MEDICARE, OTHER | END 2023-05-16 07:08 | disposition home or self-care (01) | LOC: LAB.S 07:07 | PROVIDERS: ATTEND Pharmacist Pharmacist Clinician (PhC)/ Clinical Pharmacy Specialist | DX: I48.0 Paroxysmal atrial fibrillation (principal) | CPT/HCPCS: 36416; 85610 ==

== ENCOUNTER 2023-05-23 07:27 | Outpatient (CLI) | payer MEDICARE, OTHER | END 2023-05-23 07:28 | disposition home or self-care (01) | LOC: LAB.S 07:27 | PROVIDERS: ATTEND Pharmacist Pharmacist Clinician (PhC)/ Clinical Pharmacy Specialist | DX: I48.0 Paroxysmal atrial fibrillation (principal) | CPT/HCPCS: 36416; 85610 ==

== ENCOUNTER 2023-06-26 08:20 | Outpatient (CLI) | payer MEDICARE, OTHER | END 2023-06-26 08:21 | disposition home or self-care (01) | LOC: LAB.S 08:20 | PROVIDERS: ATTEND Pharmacist Pharmacist Clinician (PhC)/ Clinical Pharmacy Specialist | DX: I48.0 Paroxysmal atrial fibrillation (principal) | CPT/HCPCS: 36416; 85610 ==

== ENCOUNTER 2023-07-06 08:54 | Outpatient (CLI) | payer MEDICARE, OTHER | END 2023-07-06 08:55 | disposition home or self-care (01) | LOC: LAB.S 08:54 | PROVIDERS: ATTEND Pharmacist Pharmacist Clinician (PhC)/ Clinical Pharmacy Specialist | DX: I48.0 Paroxysmal atrial fibrillation (principal) | CPT/HCPCS: 36416; 85610 ==

== ENCOUNTER 2023-07-17 07:27 | Outpatient (CLI) | payer MEDICARE, OTHER | END 2023-07-17 07:28 | disposition home or self-care (01) | LOC: LAB.S 07:27 | PROVIDERS: ATTEND Pharmacist Pharmacist Clinician (PhC)/ Clinical Pharmacy Specialist | DX: I48.0 Paroxysmal atrial fibrillation (principal) | CPT/HCPCS: 36416; 85610 ==

== ENCOUNTER 2023-08-31 07:20 | Outpatient (CLI) | payer MEDICARE, OTHER | END 2023-08-31 07:21 | disposition home or self-care (01) | LOC: LAB.S 07:20 | PROVIDERS: ATTEND Pharmacist Pharmacist Clinician (PhC)/ Clinical Pharmacy Specialist | DX: I48.0 Paroxysmal atrial fibrillation (principal) | CPT/HCPCS: 36416; 85610 ==

== ENCOUNTER 2023-09-04 13:05 | Outpatient (CLI) | payer MEDICARE, OTHER | END 2023-09-04 13:06 | disposition home or self-care (01) | LOC: LAB.S 13:05 | PROVIDERS: ATTEND Pharmacist Pharmacist Clinician (PhC)/ Clinical Pharmacy Specialist | DX: I48.0 Paroxysmal atrial fibrillation (principal) | CPT/HCPCS: 36416; 85610 ==

== ENCOUNTER 2023-09-19 07:29 | Outpatient (CLI) | payer MEDICARE, OTHER | END 2023-09-19 07:30 | disposition home or self-care (01) | LOC: LAB.S 07:29 | PROVIDERS: ATTEND Pharmacist Pharmacist Clinician (PhC)/ Clinical Pharmacy Specialist | DX: I48.0 Paroxysmal atrial fibrillation (principal) | CPT/HCPCS: 36416; 85610 ==

== ENCOUNTER 2023-09-26 07:20 | Outpatient (CLI) | payer MEDICARE, OTHER | END 2023-09-26 07:21 | disposition home or self-care (01) | LOC: LAB.S 07:20 | PROVIDERS: ATTEND Pharmacist Pharmacist Clinician (PhC)/ Clinical Pharmacy Specialist | DX: I48.0 Paroxysmal atrial fibrillation (principal) | CPT/HCPCS: 36416; 85610 ==

== ENCOUNTER 2023-09-29 07:19 | Outpatient (CLI) | payer MEDICARE, OTHER | END 2023-09-29 07:20 | disposition home or self-care (01) | LOC: LAB.S 07:19 | PROVIDERS: ATTEND Pharmacist Pharmacist Clinician (PhC)/ Clinical Pharmacy Specialist | DX: I48.0 Paroxysmal atrial fibrillation (principal) | CPT/HCPCS: 36416; 85610 ==